=== PATIENT | male | born 1960 | race Caucasian/White ===

== ENCOUNTER → 2017-04-26 | Outpatient (CLI) | payer OTHER | END | disposition disaster alternative care site (69) | LOC: GRAD 09:06 | DX: C82.98 Follicular lymphoma, unspecified, lymph nodes of multiple sites (principal); I26.99 Other pulmonary embolism without acute cor pulmonale; I10 Essential (primary) hypertension; R06.02 Shortness of breath | CPT/HCPCS: Q9967 ==